=== PATIENT | male | born 1975 | race Caucasian/White ===

== ENCOUNTER 2019-10-26 15:59 | Emergency (ER) | payer SELFPAY ==
[~2019-10-26 15:59] MED LIST: AMOXICILLIN500 MG PO; GLIPIZIDE5 M2 PO; HYDROCHLOROT12.5 MG PO; METFORMIN500 MG PO; MUCINEX600 MG PO; NASONEX50 MCG/AC; NO HOME MEDS; PAROXETINE20 MG PO; PREVACID30 M2 PO; ULTRAM50 M1 PO
[2019-10-26 16:38] VITALS: BP 153/84
== END 2019-10-26 16:59 | disposition home or self-care (01) | DRG 305 ==
LOC: ED 15:59
DX: I10 Essential (primary) hypertension (principal); E11.9 Type 2 diabetes mellitus without complications; Z79.84 Long term (current) use of oral hypoglycemic drugs

== ENCOUNTER 2023-12-05 09:04 | Day surgery (SDC) | payer OTHER ==
[~2023-12-05] VITALS: Ht 180.3 cm; Wt 95.3 kg
[~2023-12-05 09:04] MED LIST changes: +AMLODIPINE BESY10 MG PO; +ATORVASTATIN CA20 MG PO; +LISINOPRIL40 MG PO; +METFORMIN HCL1000 MG PO
[2023-12-05] MEDS ORDERED: SODIUM CHLORIDE 0.9% 1,000 ML IV ONE ×2 (09:35→09:37)
[2023-12-05] MEDS ORDERED: FAMOTIDINE 10MG/ML 2ML SDV IV ONE (09:35)
[2023-12-05 12:05] VITALS: BP 124/88
[2023-12-05] MEDS ORDERED: PROPOFOL 200 MG/20 ML VIAL IV ONE (12:47)
[2023-12-05] MEDS ORDERED: LIDOCAINE HCL 2% 2ML SDV IV ONE (12:47)
[2023-12-05] MEDS ORDERED: GLYCOPYRROLATE 0.2 MG/ML IV ONE (12:47)
== END 2023-12-05 12:20 | disposition home or self-care (01) | DRG 951 ==
LOC: ENDO 09:04
PROVIDERS: ATTEND Internal Medicine Gastroenterology
PROC: 0DBP8ZX Excision of Rectum, Via Natural or Artificial Opening Endoscopic, Diagnostic (ICD-10-PCS; principal; 2023-12-05)
PROC: 0DBN8ZX Excision of Sigmoid Colon, Via Natural or Artificial Opening Endoscopic, Diagnostic (ICD-10-PCS; 2023-12-05)
DX: Z12.11 Encounter for screening for malignant neoplasm of colon (principal); D12.5 Benign neoplasm of sigmoid colon; K64.8 Other hemorrhoids; K62.1 Rectal polyp